=== PATIENT | female | born 1960 | race Caucasian/White ===

== ENCOUNTER → 2022-09-02 | Outpatient (CLI) | payer OTHER | END | disposition home or self-care (01) | LOC: RAH 08:57 | PROVIDERS: ATTEND Internal Medicine Cardiovascular Disease | DX: K76.0 Fatty (change of) liver, not elsewhere classified (principal); R93.5 Abnormal findings on diagnostic imaging of other abdominal regions, including retroperitoneum | CPT/HCPCS: 76700 ==

== ENCOUNTER → 2022-10-30 | Outpatient (CLI) | payer OTHER | END | disposition home or self-care (01) | LOC: EDUNIT# 09-25 13:00 → RAH 12:43 | PROVIDERS: ATTEND Internal Medicine Cardiovascular Disease | DX: Z13.6 Encounter for screening for cardiovascular disorders (principal); R93.1 Abnormal findings on diagnostic imaging of heart and coronary circulation | CPT/HCPCS: 75571 ==